=== PATIENT | female | born 1990 | race Caucasian/White ===

== ENCOUNTER 2020-09-23 07:50 | Day surgery (SDC) | payer OTHER ==
[~2020-09-23] VITALS: Ht 165.1 cm; Wt 79.5 kg
--- NOTE | ~2020-09-23 | OR ---
[facility] [address], [place] [address] Draft DATE OF OPERATION: 09/23/2020 SURGEON: Chris Tuttle MD PREOPERATIVE DIAGNOSES: Polyps, recurrent sinus polyposis and deviated septum, nasal obstruction. POSTOPERATIVE DIAGNOSES: Polyps, recurrent sinus polyposis and deviated septum, nasal obstruction. PROCEDURES: 1. Septoplasty, 94899. 2. Left endoscopic maxillary antrostomies with removal of polyps, 56546. INDICATIONS: This 30-year-old female had sinus surgery by myself may be 2 or 10 years ago or more. The patient gradually has been growing polyps associated with obstruction and pain and congestion, recurring acute infections. This was inadequately treated with medically, above procedure was indicated. DESCRIPTION OF PROCEDURE: The patient was placed in supine position, had an orotracheal intubation, was placed under general anesthesia. The areas were suctioned out and then injected with a couple of mL of 1% lidocaine with 1:100,000 epinephrine. Then, the polyps were removed medially that were blocking the ostium of the maxillary sinus. The sinus was enlarged with backbiting forceps. A Thru-Cut ethmoid punch 70-degree scope was used to visualize the retention cyst and polyps, which were removed off the roof and on the floor and the lateral wall of the sinus. Polyps were then shaved in that anterior ethmoids up in the frontal recess. Same thing on the right side. Maxillary sinus polyps removed from there and in the ethmoids until it was clean, then the septum was approached. Flap lifted on the left side after injecting 2 mL of 1% lidocaine with 1:100,000 epinephrine, bone from cartilage. The Thomas scissors were used to section the deviated bone superiorly and then inferiorly the maxillary crest cut with the mallet and chisel, and then the flaps were based together with 4-0 gut and the anterior incision closed with 4-0 chromic. Estimated blood loss was 20 mL. There were no complications. The patient underwent to the recovery room in good condition. PATIENT NAME: SMITA DIETRICH OPERATIVE REPORT DATE OF : [birth year] REPORT #: [id number] PHYSICIAN: CHRIS TUTTLE MD PCP: NO PRIMARY CARE PHYSICIAN REPORT IS CONFIDENTIAL AND NOT TO BE RELEASED WITHOUT AUTHORIZATION [facility] [address], [place] [address] Draft Chris Tuttle MD [facility] /[id number] Copies: ~ PATIENT NAME: SMITA DIETRICHE OPERATIVE REPORT DATE OF : [birth year] REPORT #: [id number] PHYSICIAN: CHRIS TUTTLE MD PCP: NO PRIMARY CARE PHYSICIAN REPORT IS CONFIDENTIAL AND NOT TO BE RELEASED WITHOUT AUTHORIZATION
--- NOTE | 2020-09-23 13:11 | NUR ---
LE 0835: SHORTLY AFTER IV WAS INSERTED, PATIENT HAD A VASOVAGAL EPISODE. PATIENT UNABLE TO SPEAK/RESPOND. THEN HAD SEIZURE LIKE BODY MOVEMENTS. HELP OBTAINED FROM SECOND RN AND [employer]. JAW THRUST BY [employer] DONE TEMPORARILY. PATIENT BECAME RESPONSIVE WITHIN A MINUTE OF WHEN SHE FIRST STARTED SHOWING SIGNS OF VASOVAGAL. BP WNL AFTER EPISODE. HEART RATE DECREASED TO 43 BPM, BUT STEADILY INCREASED BACK TO ADMIT LEVEL ONCE SYMPTOMS RESOLVED. O2 SAT WAS 100% ON ROOM AIR. AFTER SYMPTOMS RESOLVED, PATIENT ADMITTED TO HAVING SIMILAR EPISODES IN THE PAST.
--- NOTE | 2020-09-23 13:23 | NUR ---
09/23/20 1323 Angelita Caputo 1319 PATIENT ARRIVES TO PACU UNRESPONSIVE TO PAIN. ORAL AIRWAY IN PLACE. RESP EVEN AND UNLABORED, MASK AT 6 LITERS.
--- NOTE | 2020-09-23 14:31 | NUR ---
1420: PATIENT BACK IN DAY SURGERY ROOM FROM PACU. DROWSY. DENIES PAIN. DENIES NAUSEA. VS CHECKED. NASAL DRIP PAD IN PLACE, CLEAN DRY AND INTACT. IV SITE WNL. SCDs ON. PATIENT GIVEN SIPS OF WATER. MOTHER AT BEDSIDE. CALL LIGHT WITHIN REACH.
[2020-09-23] MEDS ORDERED: ULTRAM50 MG PO (14:45)
--- NOTE | 2020-09-23 14:59 | NUR ---
1447: CHECKED PATIENT. PATIENT SLEEPING. MOTHER AT BEDSIDE. CALL LIGHT WITHIN REACH.
--- NOTE | 2020-09-23 15:27 | NUR ---
PATIENT ASSISTED OOB AND TO BATHROOM. GAIT STEADY. VOID WITHOUT DIFFICULTY. GAIT STEADY BACK TO ROOM. VS CHECKED. PATIENT GIVEN APPLESAUCE TO EAT. MOTHER AT BEDSIDE. CALL LIGHT WITHIN REACH.
--- NOTE | 2020-09-23 15:50 | NUR ---
PATIENT TOLERATED SOME BITES OF APPLESAUCE. PATIENT NOW SLEEPING. MOTHER AT BEDSIDE. CALL LIGHT WITHIN REACH.
--- NOTE | 2020-09-23 16:45 | NUR ---
PATIENT UP TOLERATING GETTING DRESSED. PROVIDED SUPPLIES FOR CHANGING DRIP PAD AT HOME. PATIENT AND MOTHER VERBALIZE UNDERSTANDING OF CARE. PROVIDED DISCHARGE PAPERWORK, AND THEN WHEELCHAIR RIDE TO FRONT. PATIENT TOLERATED TRANSFERING INTO CAR WELL.
== END 2020-09-23 16:45 | disposition home or self-care (01) ==
LOC: OPS 07:50 → DS 07:50 → OPS 09:00 → DS 09:00 → OPS 16:45
PROVIDERS: ATTEND Otolaryngology
PROC: 099R8ZZ Drainage of Left Maxillary Sinus, Via Natural or Artificial Opening Endoscopic (ICD-10-PCS; principal; 2020-09-23 09:00)
PROC: 09SM4ZZ Reposition Nasal Septum, Percutaneous Endoscopic Approach (ICD-10-PCS; 2020-09-23 09:00)
DX: J33.8 Other polyp of sinus (principal); J34.2 Deviated nasal septum; J34.89 Other specified disorders of nose and nasal sinuses; Z86.16 Personal history of COVID-19
CPT/HCPCS: 00160; J0330; J1100; J1885; J2250; J2405; J2704; J2765; J3010; J7121